=== PATIENT | female | born 1985 | race African-American/Black ===

== ENCOUNTER 2021-07-02 17:42 | Inpatient (IN) | payer BC ==
[~2021-07-02 17:42] MED LIST: Bupivacaine 0.25% HCL 30 ML VIAL ONE
[2021-07-02 18:11] VITALS: BMI 29.6
[2021-07-02] MEDS ORDERED: NS w/ Oxytocin 30 units 500 ML ONE (18:24)
[2021-07-02] MEDS ORDERED: Lidocaine 1% (PF) 30 ML VIAL ONE (18:24)
[2021-07-02] MEDS ORDERED: Ibuprofen 800 MG TAB PO PRN (18:35)
[2021-07-02] MEDS ORDERED: hydrALAZINE 20 MG/ML VIAL SLOW IVP PRN ×2 (18:35→23:48)
[2021-07-02] MEDS ORDERED: Promethazine HCl 25 MG/ML VIAL IM PRN ×2 (18:35→19:45)
[2021-07-02] MEDS ORDERED: Lidocaine 1% (PF) 30 ML VIAL SC PRN (18:35)
[2021-07-02] MEDS ORDERED: Methylergonovine 0.2 MG/ML VIAL IM PRN (18:35)
[2021-07-02] MEDS ORDERED: Carboprost 250 MCG/ML AMP IM PRN (18:35)
[2021-07-02] MEDS ORDERED: Acetaminophen 500 MG TAB PO PRN (18:35)
[2021-07-02] MEDS ORDERED: Misoprostol 200 MCG TAB PR PRN (18:35)
[2021-07-02] MEDS ORDERED: Ondansetron PF 4 MG/2 ML Vial IVP PRN ×2 (18:35→19:45)
[2021-07-02] MEDS ORDERED: NS w/ Oxytocin 30 units 500 ML IV SCH (18:45)
[2021-07-02] MEDS ORDERED: Fentanyl 2 mcg/Bup 0.1% Cadd 100 ML ONE (18:49)
[2021-07-02 18:56] LABS: Hemoglobin 12.1 g/dL (12.0-15.5); Mean Corpuscular HGB CONC 31.7 g/dL (32.0-36.0); Mean Corpuscular Hemoglobin 22.9 pg (27.0-33.0); Mean Corpuscular Volume 72.2 fl (81.6-98.3); Mean Platelet Volume 11.6 fl (7.4-10.4); Platelet Count 255 10x3/uL (150-450); RBC Distribution Width 15.9 % (11.5-14.5); Red Blood Cell (RBC) Count 5.29 10x6/uL (3.90-5.03); White Blood Cell (WBC) Count 10.1 10x3/uL (3.5-10.5)
[2021-07-02 19:27] LABS: Hep B Surf Ag Non-Reactive S/CO (NonReactive)
[2021-07-02 19:28] LABS: Syphilis Antibody Nonreactive (Nonreactive); Syphilis Antibody Index 0.03 S/CO (<1.00 Non-Reactive)
[2021-07-02] MEDS ORDERED: Acetaminophen 325 MG TAB PO PRN (19:45)
[2021-07-02] MEDS ORDERED: Naloxone HCl 0.4 mg/ml Vial IVP PRN ×2 (19:45)
[2021-07-02] MEDS ORDERED: Lactated Ringer's 500 ML IV PRN (19:45)
[2021-07-02] MEDS ORDERED: ePHEDrine Sulfate 50 MG/10 ML VIAL SLOW IVP PRN (19:45)
[2021-07-02] MEDS ORDERED: Hydrocerin (Eucerin) Cream 120 gm Jar TOP PRN (19:45)
[2021-07-02] MEDS ORDERED: Fentanyl 2 mcg/Bupivacaine 0.1% Cassette 100 ML EPIDURAL SCH (19:45)
[2021-07-02] MEDS ORDERED: diphenhydrAMINE 50 MG/ML VIAL IVP PRN (19:45)
[2021-07-02] MEDS ORDERED: Communication Order-Pharmacy FS SCH (19:45)
[2021-07-02] MEDS ORDERED: Lanolin Ointment 7 GM TUBE TOP PRN (23:48)
[2021-07-02] MEDS ORDERED: Milk Of Magnesia 30 ML UDCUP PO PRN (23:48)
[2021-07-02] MEDS ORDERED: Preparation H Ointment 28 GM TUBE PR PRN (23:48)
[2021-07-02] MEDS ORDERED: diphenhydrAMINE 25 MG CAP PO PRN (23:48)
[2021-07-02] MEDS ORDERED: Benzocaine-Menthol 82.5 ML CAN TOP PRN (23:48)
[2021-07-02] MEDS ORDERED: Bisacodyl 10 MG SUPP PR PRN (23:48)
[2021-07-02] MEDS ORDERED: HYDROcodone/Acetaminophen 5/325 mg Tablet PO PRN (23:48)
[2021-07-02] MEDS ORDERED: Boostrix 0.5 ML (Tdap) VIAL IM ONE (23:48)
[2021-07-03 01:21] LABS: SARS-CoV-2 NAA Rapid Test Not Detected (NotDetected)
[2021-07-03] MEDS: Ibuprofen 800 MG TAB PO SCH ×3 (05:45→20:25)
[2021-07-03] MEDS: Ferrous Sulfate 325 MG TAB PO SCH ×2 (08:27→13:59)
[2021-07-03] MEDS: Docusate 100 MG CAP PO SCH ×2 (08:28→20:24)
[2021-07-03] MEDS: Prenatal Vitamin 1 TAB PO SCH (08:28)
[2021-07-04] MEDS: Ibuprofen 800 MG TAB PO SCH (05:25)
[2021-07-04] MEDS: Ferrous Sulfate 325 MG TAB PO SCH (08:02)
[2021-07-04 09:36] VITALS: BP 120/63; TEMP 98.2
[2021-07-04] MEDS: Prenatal Vitamin 1 TAB PO SCH (09:48)
[2021-07-04] MEDS: Docusate 100 MG CAP PO SCH (09:48)
== END 2021-07-04 13:50 | disposition home or self-care (01) | DRG 807 ==
LOC: CSHLD/OP 17:42 → CSHLD 18:33 → CSHPP 23:45
PROVIDERS: ADMIT Obstetrics & Gynecology; ATTEND Obstetrics & Gynecology
PROC: 10E0XZZ Delivery of Products of Conception, External Approach (ICD-10-PCS; principal; 2021-07-02)
DX: O70.0 First degree perineal laceration during delivery (principal); Z37.0 Single live birth; Z3A.39 39 weeks gestation of pregnancy; O69.81X0 Labor and delivery complicated by cord around neck, without compression, not applicable or unspecified; Z20.822 Contact with and (suspected) exposure to COVID-19
CPT/HCPCS: 85027; 86780; 86850; 86900; 86901; 87340; 99285; J2001; J2590; S0020; U0002